=== PATIENT | male | born 1975 | race Caucasian/White ===

== ENCOUNTER 2018-11-01 20:51 | Emergency (ER) | payer SELFPAY ==
[~2018-11-01] VITALS: Ht 165.1 cm; Wt 58.0 kg
--- NOTE | 2018-11-01 21:06 | NUR ---
PT BIB EMS, AMBULATORY ON SCENE. PT PRESENTS CALM AND A&OX4. PT COOPERATIVE. PT ON VITALS MONITOR. AWAITING ERP EVAL
--- NOTE | 2018-11-01 21:17 | NUR ---
EKG DONE, PT HR 138
--- NOTE | 2018-11-01 21:52 | NUR ---
PT GIVEN WATER AND URINAL FOR URINE COLLECTION.
[2018-11-01 22:20] LABS: ANION GAP 10 mmol/L (5-15); CALCIUM 8.7 mg/dL (8.5-10.1); CHLORIDE 98 mmol/L (98-107); CREATININE 0.95 mg/dL (0.7-1.3)
--- NOTE | 2018-11-01 22:20 | NUR ---
PT HAS REMOVED ALL VITALS MONITORS. STATED HE IS TIRED AND WANTED THEM OFF. PT BEHAVIOR AND STATMENTS BECOMING ANXIOUS AND STRANGE. PT STATED, "I ONLY WANT YOU TO COME IN HERE, BECAUSE YOU KNOW. THERE'S THINGS GOING ON". THIS RN ASKED WHAT PT WAS REFERRING TO. PT STATED, "OH, I'M JUST LETTING YOU KNOW".
[2018-11-01 22:34] LABS: CREATINE KINASE, TOTAL 1666 U/L (39-308)
[2018-11-01] MEDS ORDERED: SODIUM CHLORIDE 0.9% 1,000ML IVBOLUS ONE (23:00)
[2018-11-01 23:01] VITALS: BP 120/99
[2018-11-01 23:15] LABS: MICROSCOPIC AUTO
[2018-11-01 23:29] LABS: CULTURE INDICATED? NO
--- NOTE | 2018-11-01 23:35 | NUR ---
2 IV ATTEMPTS FAILED. PT DRINKING WATER. PT PROVIDED URINE WHICH WAS WALKED TO LAB. ANOTHER RN TO ATTEMPT IV PLACEMENT.
--- NOTE | 2018-11-02 00:46 | NUR ---
IV STARTED. ORDERED FLUIDS INFUSING. PT CONTINUES TO REMOVE VITALS MONITORS. PT RESTING IN BED CALMLY AT THIS TIME. WILL CONTINUE TO MONITOR.
--- NOTE | 2018-11-02 01:10 | NUR ---
TASK RN: PT AMBULATING STEADILY IN [address] W/ [place] OVER HAND. IV NOTED TO BE DC'D. BLEEDING CONTROLED. IV CATH NOTED ON DARLENE, GIORGIO INTACT. PT ASKED TO DRESS.
--- NOTE | 2018-11-02 01:21 | NUR ---
TASK RN: PT AGAIN IN HALLWAY COMING BACK TO ROOM FROM BATHROOM. PT STILL IN GOWN; PT AGAIN ASKED TO DRESS SELF. THIS RN OFFERED SECURITY TO ASSIST. PT REPORTS "I NEED NEW CLOTHES, THESE SMELL BAD". CLOTHING APPEARS NEW AND APPROPRIATE FOR WEATHER. PT ASKED TO DRESS AND IS AWARE THAT SECURITY WILL BE CONTACTED IF NEEDED.
--- NOTE | 2018-11-02 01:27 | NUR ---
TASK RN: PT REMAINS IN GOWN, PULLING ITEMS OUT OF CUPBOARDS. SECURITY CONTACTED AT THIS TIME
--- NOTE | 2018-11-02 01:30 | NUR ---
TASK RN: PT AMBULATED STEADILY TO DC WITH SECURITY.
== END 2018-11-02 01:32 | disposition home or self-care (01) ==
LOC: ED 23:59
DX: F15.151 Other stimulant abuse with stimulant-induced psychotic disorder with hallucinations (principal); M62.82 Rhabdomyolysis
CPT/HCPCS: 36415; 80048; 81001; 82550; 93005; 99284; J7030